=== PATIENT | male | born 1990 | race Caucasian/White ===

== ENCOUNTER 2017-12-14 19:32 | Emergency (ER) | payer OTHER ==
[2017-12-14 19:37] VITALS: BP 131/64; PULSE 65; RESP 16; TEMP 97.6; O2SAT 99
[2017-12-14] MEDS ORDERED: Tdap Vaccine 0.5 ml Vial (10-64 yrs) IM ONE ×2 (19:58→20:12)
[2017-12-14] MEDS ORDERED: Lidocaine 1% (10 ml) Inj INFIL STA (19:58)
[2017-12-14] MEDS ORDERED: Lidocaine 1% Inj (20ml) ONE (19:59)
--- NOTE | 2017-12-14 20:44 | ED PDOC ---
HPI: Wound Care - HPI Time Seen by Provider: 12/14/17 19:47 Chief Complaint (Nursing): Finger,Hand,&Wrist Chief Complaint (Provider): Finger injury History Per: Patient Onset/Duration Of Symptoms: Hrs (prior to arrival) Current Symptoms Are (Timing): Still Present Location Of Injury: Right: Hand (index finger) Additional Complaint(s): Dion Santos is a 27 year old male, with no significant past medical history, who presents to the emergency department for a laceration to right index finger onset prior to arrival. Patient reports he accidentally sliced his finger with a knife while cutting food at home. Tetanus is not up to date. He denies any other injuries or other medical complaints. PMD: None provided. Past Medical History Reviewed: Historical Data, Nursing Documentation, Vital Signs Vital Signs: Last Vital Signs Temp 97.6 F 12/14/17 19:34 Pulse 65 12/14/17 19:34 Resp 16 12/14/17 19:34 BP 131/64 12/14/17 19:34 Pulse Ox 99 12/14/17 19:34 - Medical History PMH: No Chronic Diseases - Surgical History Surgical History: No Surg Hx - Family History Family History: States: Unknown Family Hx - Social History Current smoker - smoking cessation education provided: No Alcohol: None Drugs: Denies - Immunization History Hx Tetanus Toxoid Vaccination: No - Allergies Allergies/Adverse Reactions: Allergies Allergy/AdvReac Type Severity Reaction Status Date / Time No Known Allergies Allergy Verified 12/14/17 19:34 Review of Systems ROS Statement: Except As Marked, All Systems Reviewed And Found Negative Musculoskeletal: Positive for: Hand Pain (right index finger laceration.) Physical Exam - Reviewed Nursing Documentation Reviewed: Yes Vital Signs Reviewed: Yes - Physical Exam Appears: Positive for: Well, Non-toxic, No Acute Distress Head Exam: Positive for: ATRAUMATIC, NORMAL INSPECTION, NORMOCEPHALIC Skin: Positive for: Normal Color, Warm, Dry Eye Exam: Positive for: Normal appearance Neck: Positive for: Painless ROM Respiratory: Negative for: Respiratory Distress Extremity: Positive for: Normal ROM, Other (superficial skin flap distal to the DIP of the right index finger. ). Negative for: Deformity, Swelling Neurologic/Psych: Positive for: Alert, Oriented - ECG O2 Sat by Pulse Oximetry: 99 (RA) Pulse Ox Interpretation: Normal Medical Decision Making Medical Decision Making: Initial Impression: right finger injury Initial Plan: --Adacel 0.5 ml IM --Lidocaine hydrochloride 1% 5 ml INFIL --Reevaluation --Some bleeding noted on wound. After irrigation and pressure the bleeding stopped. ~ Scribe Attestation: Documented by Jonathan Delgado, acting as a scribe for Lea Sepulveda PA-C. Provider Scribe Attestation: All medical record entries made by the Scribe were at my direction and personally dictated by me. I have reviewed the chart and agree that the record accurately reflects my personal performance of the history, physical exam, medical decision making, and the department course for this patient. I have also personally directed, reviewed, and agree with the discharge instructions and disposition. Disposition - Clinical Impression Clinical Impression: Finger laceration, Tetanus toxoid vaccination administered at current visit - Patient ED Disposition Is Patient to be Admitted: No - Disposition Disposition: Routine/Home Disposition Time: 20:43 Condition: GOOD Instructions: Laceration Repair With Glue (DC) Forms: [employer] ([place])
== END 2017-12-14 20:48 | disposition home or self-care (01) ==
LOC: H.ER 19:32
DX: S61.210A Laceration without foreign body of right index finger without damage to nail, initial encounter (principal); W26.0XXA Contact with knife, initial encounter; Y92.000 Kitchen of unspecified non-institutional (private) residence as the place of occurrence of the external cause